=== PATIENT | female | born 1985 | race Caucasian/White ===

== ENCOUNTER 2020-04-28 17:42 | Emergency (ER) | payer OTHER ==
[~2020-04-28] VITALS: Ht 167 cm; Wt 111.0 kg
[2020-04-28] MEDS ORDERED: IBUPROFEN 800 MG (MOTRIN) TAB PO ONE (18:45)
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
[2020-04-28 19:30] VITALS: BP 130/80
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
== END 2020-04-28 19:31 | disposition home or self-care (01) ==
LOC: ER 17:43
DX: S30.1XXA Contusion of abdominal wall, initial encounter (principal); S20.212A Contusion of left front wall of thorax, initial encounter; R40.2410 Glasgow coma scale score 13-15, unspecified time; V49.40XA Driver injured in collision with unspecified motor vehicles in traffic accident, initial encounter
CPT/HCPCS: 71046; 72170